=== PATIENT | male | born 1965 | race Caucasian/White ===

== ENCOUNTER 2019-10-27 11:47 | Day surgery (SDC) | payer MEDICARE, OTHER ==
[~2019-10-27] VITALS: Ht 177.8 cm; Wt 150.0 kg
[2019-10-27] MEDS ORDERED: ISOPROTERENOL 0.2MG/ML, 5ML ONE (13:44)
== END 2019-10-27 14:15 | disposition home or self-care (01) ==
LOC: CACL 11:47
PROVIDERS: ATTEND Internal Medicine Cardiovascular Disease
DX: R55 Syncope and collapse (principal); I10 Essential (primary) hypertension; E11.9 Type 2 diabetes mellitus without complications; E78.5 Hyperlipidemia, unspecified; G47.33 Obstructive sleep apnea (adult) (pediatric); E66.9 Obesity, unspecified; F31.81 Bipolar II disorder; Z79.899 Other long term (current) drug therapy; Z79.84 Long term (current) use of oral hypoglycemic drugs; Z87.891 Personal history of nicotine dependence; Z68.42 Body mass index [BMI] 45.0-49.9, adult
CPT/HCPCS: 82962; 93660

== ENCOUNTER 2020-02-16 03:30 | Emergency (ER) | payer OTHER, MEDICARE ==
[~2020-02-16] VITALS: Ht 177.8 cm; Wt 144.4 kg
--- NOTE | 2020-02-16 04:23 | NUR ---
pt resting on gurney, moniotrs applied, sidrails up x2, call light within reach. awaiting erp eval and orders
--- NOTE | 2020-02-16 04:24 | NUR ---
this rn attempted to review pt's home medication list with him, pt stated " i take alot of medications but i do not know what they are and i don't have my list with me".
--- NOTE | 2020-02-16 04:53 | NUR ---
PT'S DAUGHTER- ODALYS DE LEÓN [phone]
[2020-02-16] MEDS ORDERED: INSU100I34 SQ-INSULIN (04:56)
[2020-02-16] MEDS ORDERED: SEMA0.25 SQ (04:56)
[2020-02-16] MEDS ORDERED: METF500T17 PO (04:57)
[2020-02-16] MEDS ORDERED: ERGO500017 PO (05:00)
[2020-02-16] MEDS ORDERED: TOPI50TA8 PO (05:00)
[2020-02-16] MEDS ORDERED: LISI-170 PO (05:00)
[2020-02-16] MEDS ORDERED: TAMS-11 PO (05:00)
[2020-02-16] MEDS ORDERED: OXCA300T19 PO (05:00)
[2020-02-16] MEDS ORDERED: ATOR40TA78 PO (05:00)
[2020-02-16] MEDS ORDERED: GLIP10TA13 PO (05:00)
[2020-02-16] MEDS ORDERED: SERT100T PO (05:00)
[2020-02-16] MEDS ORDERED: BUPR-173 PO (05:00)
[2020-02-16 05:11] LABS: BASOPHILS # (AUTO) 0.05 x10^3/uL (0-0.1); BASOPHILS % (AUTO) 0 % (0-1); EOSINOPHILS # (AUTO) 0.46 x10^3/uL (0-0.4); EOSINOPHILS % (AUTO) 4 % (1-7); LYMPHOCYTES # (AUTO) 2.21 x10^3/uL (1-3.4); LYMPHOCYTES % (AUTO) 18 % (22-44); MD NO; MEAN CORPUSCULAR HEMOGLOBIN 29.1 pg (27.5-34.5); MEAN CORPUSCULAR VOLUME 88.2 fL (81-97); MEAN PLATELET VOLUME 7.8 fL (7.4-10.4); MONOCYTES # (AUTO) 0.67 x10^3/uL (0.2-0.8); MONOCYTES % (AUTO) 5 % (2-9); NEUTROPHILS # (AUTO) 9.01 x10^3/uL (1.8-6.8); NEUTROPHILS % (AUTO) 73 % (42-75); PLATELET COUNT 217 x10^3/uL (130-400); RED BLOOD COUNT 5.27 x10^6/uL (4.38-5.82); RED CELL DISTRIBUTION WIDTH 13.6 % (9.4-14.8)
[2020-02-16 05:14] LABS: ALBUMIN 3.8 g/dL (3.4-5.0); ANION GAP 3 mmol/L (5-15); CALCIUM 8.6 mg/dL (8.5-10.1); CHLORIDE 104 mmol/L (98-107); CREATININE 0.87 mg/dL (0.7-1.3)
[2020-02-16 05:19] VITALS: BP 138/88
== END 2020-02-16 05:41 | disposition home or self-care (01) ==
LOC: ED 04:06
DX: R50.9 Fever, unspecified (principal); E11.9 Type 2 diabetes mellitus without complications
CPT/HCPCS: 36415; 80048; 82040; 85025; 99283